=== PATIENT | female | born 1985 | race Two or more races ===

== ENCOUNTER 2024-09-08 14:37 | Emergency (ER) | payer MEDICAID ==
[~2024-09-08] VITALS: Ht 160 cm; Wt 66.4 kg
[2024-09-08 16:52] VITALS: TEMP 98.2
[2024-09-08] MEDS: HYDROCODONE/ACETAMINOPHEN 5-325 MG TABLET PO ONE (18:58)
[2024-09-08 19:10] LABS: BASOPHILS % (AUTO) 0.6 % (0.0-2.0); EOSINOPHILS % (AUTO) 0.6 % (1.0-6.0); HEMATOCRIT 40.7 % (36-46); HEMOGLOBIN 13.8 g/dL (12.0-16.0); LYMPHOCYTES # (AUTO) 2.9 K/uL (1.0-4.8); LYMPHOCYTES % (AUTO) 30.1 % (22.0-44.0); MEAN CORPUSCULAR HGB CONC 33.8 G/dL (31.0-37.0); MEAN CORPUSCULAR VOLUME 98 fL (80-100); MONOCYTES # (AUTO) 0.5 K/uL (0.1-1.0); MONOCYTES % (AUTO) 4.8 % (2.0-9.0); NEUTROPHILS # (AUTO) 6.2 K/uL (1.8-7.7); NEUTROPHILS % (AUTO) 63.9 % (40.0-70.0); PLATELET COUNT (AUTO) 132 K/uL (150-450); RED BLOOD CELL COUNT(AUTO) 4.17 MIL/uL (4.00-5.20); WHITE BLOOD COUNT (AUTO) 9.7 K/uL (4.5-11.0)
[2024-09-08 19:28] LABS: CALCIUM, TOTAL 8.8 mg/dL (8.8-10.5); CARBON DIOXIDE 23 mmol/L (22-29); CREATININE 1.04 mg/dL (0.60-1.30); GLOMERULAR FILTR. RATE CALC 59 mL/min (>60); GLUCOSE,RANDOM 93 mg/dL (70-110); HCG,QUANTITATIVE < 1 mIU/mL (0-6); UREA NITROGEN, BLOOD 14 mg/dL (7-18)
[2024-09-08 19:31] LABS: ANION GAP 13 mmol/L (8-16); CHLORIDE 104 mmol/L (98-107); POTASSIUM 3.6 mmol/L (3.5-5.1); SODIUM SERUM 140 mmol/L (136-145)
[2024-09-08] MEDS ORDERED: SODIUM CHLORIDE 0.9% 100 ML ONE (19:38)
[2024-09-08] MEDS ORDERED: IOHEXOL 350 MG/ML 100 ML VIAL ONE (19:38)
[2024-09-08] MEDS ORDERED: 0.9% SODIUM CHLORIDE 10 ML SYRINGE IVP ONE (19:38)
[2024-09-08 20:30] VITALS: BP 125/81; PULSE 75; RESP 16; O2SAT 97
[2024-09-08] MEDS: LIDOCAINE 1% 10 ML VIAL PERC ONE (20:50)
[2024-09-08] MEDS: PERTUSS(ACELL),DIPH,TET/PF 0.5 ML SYRINGE [ADULT] IM. ONE (21:28)
== END 2024-09-08 22:45 | disposition home or self-care (01) ==
LOC: EMS 14:37
DX: S01.511A Laceration without foreign body of lip, initial encounter (principal); F17.210 Nicotine dependence, cigarettes, uncomplicated; Z20.822 Contact with and (suspected) exposure to COVID-19; Y04.8XXA Assault by other bodily force, initial encounter; Y93.89 Activity, other specified; Y92.89 Other specified places as the place of occurrence of the external cause; Y99.8 Other external cause status
CPT/HCPCS: 99285; 70450; 80048; 84702; 85025; 36415; 70498; 90715; 90471; 12011; Q9967; J3490; J7050